=== PATIENT | male | born 1950 | race Caucasian/White ===

== ENCOUNTER → 2016-06-15 | Outpatient (CLI) | payer BC ==
[~2016-06-15] MED LIST: ABAT1INJ2 IM; ALFU1TAB37 PO; ATOR-24 PO; CIPR1TAB11 PO; CLB/200 PO; HYDR-3983 PO; INSDGI SC; LEVO200T6 PO; LISI-461 PO; MULTTAB58 PO; NVLGI SC; OMEG100046 PO; OMEP40CA41 PO; ONDA4TAB46 PO; POTATAB PO; PRD5 PO; SERT100T PO; TADA10TA PO
--- NOTE | 2016-06-15 10:07 | DIAGNOSTIC IMAGING REPORT ---
KUB HISTORY: N20.1 Ureteric stone COMPARISON: IVP 06/03/2015. KUB 04/03/2015. FINDINGS: The bowel gas pattern is unremarkable. There are no dilated loops of small bowel to suggest an obstruction. Cholecystectomy. Stable calcifications within the pelvis was likely represent phleboliths. No definite ureteral stones identified. No right renal calculi. Possible 4 mm stone within the lower pole the left kidney. No pneumoperitoneum or pneumatosis. IMPRESSION: 1. Possible 4 mm stone within the lower pole of the left kidney. 2. No ureteral calculi. Electronically signed by: Atilio Payton M.D. 06/15/2016 10:05 AM Dictated Date/Time: 06/15/2016 10:03 AM
== END | disposition home or self-care (01) ==
LOC: C.LAB 09:23
PROVIDERS: ATTEND Nurse Practitioner Family
DX: N40.1 Benign prostatic hyperplasia with lower urinary tract symptoms (principal); N20.1 Calculus of ureter

== ENCOUNTER → 2016-08-11 | Outpatient (CLI) | payer BC ==
[2016-08-11 14:51] LABS: BASO % 0.2 %; BASO ABS # 0.02 K/uL (0-0.2); COMPLETE YES; EOS % 0.9 %; HEMATOCRIT 46.6 % (42-52); IG% 0.3 %; LYMPH % 8.5 %; LYMPH ABS # 0.91 K/uL (1.2-3.4); MEAN CELL VOLUME 83.7 fL (80-100); MEAN CORPUSCULAR HEMOGLOBIN 27.1 pg (25-34); MEAN CORPUSCULAR HGB CONC 32.4 g/dl (32-36); MEAN PLATELET VOLUME 12.4 fL (7.4-10.4); MONO % 6.6 %; NEUT % 83.5 %; PLATELET COUNT 163 K/uL (130-400); RED BLOOD COUNT 5.57 M/uL (4.7-6.1); WHITE BLOOD COUNT 10.66 K/uL (4.8-10.8)
[2016-08-11 15:19] LABS: ALT/SGPT 31 U/L (12-78); BLOOD UREA NITROGEN 20 mg/dl (7-18); BUN/CREATININE RATIO 25.3 (10-20); CALCIUM 9.1 mg/dl (8.5-10.1); CARBON DIOXIDE 27 mmol/L (21-32); CHLORIDE 105 mmol/L (98-107); CREATININE 0.78 mg/dl (0.60-1.40); GLUCOSE 190 mg/dl (70-99); POTASSIUM 4.2 mmol/L (3.5-5.1); SODIUM 141 mmol/L (136-145)
[2016-08-11 15:30] LABS: AST/SGOT 13 U/L (15-37); THYROID STIMULATING HORMONE 0.186 uIu/ml (0.300-4.500)
[2016-08-12 06:27] LABS: ESTIMATED AVERAGE GLUCOSE 143 mg/dl; HA1C FLAG Normal (Normal)
--- NOTE | 2016-08-17 09:24 | CODING QUERY MEDICAL NECESSITY ---
SUPPORTING DIAGNOSIS NEEDED Dr. Snow, A supporting diagnosis is required for the test/procedure performed on this patient in order for us to be reimbursed by the patient's insurance. Please provide a supporting diagnosis for the following test/procedure listed below next to the test name along with your signature. *If there is no additional diagnosis for this patient that would support the following test/procedure please document that below next to the test/procedure. Test(s)/Procedure(s) that require a supporting diagnosis: * ([id number]) VITAMIN D ASSAY DIAGNOSIS: DATE OF SERVICE: 08/11/16 Provider Signature: Date: Thank you [facility] Information Management Once completed, please kindly fax back to [phone] For questions please call [phone]
== END | disposition home or self-care (01) ==
LOC: C.LABBC 09:39
PROVIDERS: ATTEND Psychiatry & Neurology Psychiatry
DX: F33.1 Major depressive disorder, recurrent, moderate (principal); I10 Essential (primary) hypertension; E11.9 Type 2 diabetes mellitus without complications; E78.5 Hyperlipidemia, unspecified; E03.9 Hypothyroidism, unspecified